=== PATIENT | male | born 1935 | race Caucasian/White ===

== ENCOUNTER 2018-03-23 00:57 | Outpatient (CLI) | payer MEDICARE, MEDICAID | END 2018-03-23 23:59 | disposition home or self-care (01) | LOC: DIABETIC 00:57 | PROVIDERS: ATTEND Specialist | DX: E11.65 Type 2 diabetes mellitus with hyperglycemia (principal); Z79.82 Long term (current) use of aspirin | CPT/HCPCS: G0108 ==

== ENCOUNTER 2018-05-19 01:49 | Outpatient (CLI) | payer MEDICARE, MEDICAID | END 2018-05-19 23:59 | disposition home or self-care (01) | LOC: DIABETIC 01:49 | PROVIDERS: ATTEND Specialist | DX: E11.65 Type 2 diabetes mellitus with hyperglycemia (principal); Z79.82 Long term (current) use of aspirin | CPT/HCPCS: G0108 ==

== ENCOUNTER 2018-08-22 00:53 | Outpatient (CLI) | payer MEDICARE, MEDICAID | END 2018-08-22 23:59 | disposition home or self-care (01) | LOC: DIABETIC 00:53 | PROVIDERS: ATTEND Specialist | DX: E11.65 Type 2 diabetes mellitus with hyperglycemia (principal); Z79.82 Long term (current) use of aspirin | CPT/HCPCS: G0108 ==

== ENCOUNTER 2018-11-29 04:56 | Outpatient (CLI) | payer MEDICARE, MEDICAID | END 2018-11-29 23:59 | disposition home or self-care (01) | LOC: DIABETIC 04:56 | PROVIDERS: ATTEND Specialist | DX: E11.65 Type 2 diabetes mellitus with hyperglycemia (principal); Z79.899 Other long term (current) drug therapy | CPT/HCPCS: G0108 ==